=== PATIENT | female | born 1945 | race Caucasian/White ===

== ENCOUNTER → 2017-10-19 | Outpatient (CLI) | payer MEDICARE ==
--- NOTE | 2017-10-22 11:23 | MM ---
Reason for exam: screening (asymptomatic). Last mammogram was performed 2 years ago. History: Patient is postmenopausal. Family history of breast cancer in mother at age 60 and breast cancer in paternal cousin at age 50. Benign US biopsy breast VAD RT of the right breast, February 12, 2015. Benign right mammotome panel of the right breast, November 11, 2010. Benign left mammotome panel of the left breast, March 16, 2006. Took estrogen for 11 years beginning at age 50. Physical Findings: A clinical breast exam by your physician is recommended on an annual basis and results should be correlated with mammographic findings. MG Screening Mammo w CAD Bilateral CC and MLO view(s) were taken. Prior study comparison: October 15, 2015, right breast MG 3d diag mammo w/cad RT. February 12, 2015, right breast MG diagnostic mammo RT wo CAD. The breast tissue is heterogeneously dense. This may lower the sensitivity of mammography. There is a 4cm from nipple 6mm mass central upper right breast and a 8cm from nipple 4mm mass in the upper inner quadrant both associated with calcifications. There is a group of calcifications in the left lower inner quadrant 4cm from nipple with associated masses. Right biopsy marker noted. ASSESSMENT: Incomplete: need additional imaging evaluation, BI-RAD 0 RECOMMENDATION: Special view mammogram of both breasts. If lesion persists on supplemental views, image directed ultrasound is recommended. [facility] will attempt to contact patient to return for supplemental views and ultrasound if indicated.
== END | disposition home or self-care (01) ==
LOC: RADMAMWWP 15:22
PROVIDERS: ATTEND Internal Medicine
DX: Z12.31 Encounter for screening mammogram for malignant neoplasm of breast (principal)
CPT/HCPCS: 77067

== ENCOUNTER → 2017-10-31 | Outpatient (CLI) | payer MEDICARE ==
--- NOTE | 2017-10-31 11:43 | MM ---
Reason for exam: additional evaluation requested from abnormal screening. Last mammogram was performed less than 1 month ago. History: Patient is postmenopausal. Family history of breast cancer in mother at age 60 and breast cancer in paternal cousin at age 50. Benign US biopsy breast VAD RT of the right breast, February 12, 2015. Benign right mammotome panel of the right breast, November 11, 2010. Benign left mammotome panel of the left breast, March 16, 2006. Took estrogen for 11 years beginning at age 50. Physical Findings: Nurse did not find any significant physical abnormalities on exam. MG Work Up Mamm w CAD BILAT Bilateral spot compression CC, spot compression MLO, and LM view(s) were taken. Prior study comparison: October 19, 2017, bilateral MG screening mammo w CAD. October 15, 2015, right breast MG 3d diag mammo w/cad RT. There are scattered fibroglandular densities. Previous mammotome biopsy in the right breast x 2 and in the left breast x 1. 7mm circumscribed nodule 12 o'clock right breast becomes less defined as does the smaller medial nodule. Ultrasound recommended. Lower inner quadrant focal asymmetry left breast appears to have been present previously, 6 month follow up recommended. These results were verbally communicated with the patient and result sheet given to the patient on 10/31/17. ASSESSMENT: Incomplete: need additional imaging evaluation, BI-RAD 0 RECOMMENDATION: Ultrasound of the right breast. SAUMYAD
--- NOTE | 2017-10-31 11:45 | USB ---
Reason for exam: additional evaluation requested from abnormal screening. History: Patient is postmenopausal. Family history of breast cancer in mother at age 60 and breast cancer in paternal cousin at age 50. Benign US biopsy breast VAD RT of the right breast, February 12, 2015. Benign right mammotome panel of the right breast, November 11, 2010. Benign left mammotome panel of the left breast, March 16, 2006. Took estrogen for 11 years beginning at age 50. US Breast Workup Limited RT Right limited breast ultrasound including focal area of concern, retroareolar and axilla demonstrates a 4 x 3 x 4mm oval, cystic, benign lesion at 12 o'clock and a 5 x 4 x 6mm oval, cystic lesion at 12 o'clock likely corresponds to the mammographic finding. Scanned 12-4 o'clock. 6 month follow up mammogram recommended. These results were verbally communicated with the patient and result sheet given to the patient on 10/31/17. ASSESSMENT: Probably benign, BI-RAD 3 RECOMMENDATION: Follow-up diagnostic mammogram of both breasts in 6 months.
== END | disposition home or self-care (01) ==
LOC: RADMAMWWP 10:26
PROVIDERS: ATTEND Internal Medicine
DX: R92.8 Other abnormal and inconclusive findings on diagnostic imaging of breast (principal)
CPT/HCPCS: 77066

== ENCOUNTER → 2018-12-03 | Outpatient (CLI) | payer MEDICARE ==
--- NOTE | 2018-12-03 11:53 | MM ---
Reason for exam: screening (asymptomatic). Last mammogram was performed 1 year and 1 month ago. History: Patient is postmenopausal. Family history of breast cancer in mother at age 60 and breast cancer in paternal cousin at age 50. Benign US biopsy breast VAD RT of the right breast, February 12, 2015. Benign right mammotome panel of the right breast, November 11, 2010. Benign left mammotome panel of the left breast, March 16, 2006. Took estrogen for 11 years beginning at age 50. Physical Findings: A clinical breast exam by your physician is recommended on an annual basis and results should be correlated with mammographic findings. MG 3D Screening Mammo W/Cad Bilateral CC and MLO view(s) were taken. Prior study comparison: October 31, 2017, bilateral MG work up mamm w CAD BILAT. October 19, 2017, bilateral MG screening mammo w CAD. January 27, 2015, bilateral MG screening mammo w CAD. There are scattered fibroglandular densities. There are benign appearing diffuse, grouped and round calcifications bilaterally. Previous mammotome biopsy in the right breast x 3 and in the left breast. There is chronic nodularity bilaterally. There is no discrete abnormality. ASSESSMENT: Benign, BI-RAD 2 RECOMMENDATION: Routine screening mammogram of both breasts in 1 year.
== END | disposition home or self-care (01) ==
LOC: RADMAMWWP 09:19
PROVIDERS: ATTEND Internal Medicine
DX: Z12.31 Encounter for screening mammogram for malignant neoplasm of breast (principal)
CPT/HCPCS: 77063; 77067

== ENCOUNTER 2019-02-20 12:32 | Observation (INO) | payer MEDICARE ==
[2019-02-20] MEDS ORDERED: IPRATROPIUM-ALBUTEROL 3 ML NEB INHALATION STA (13:10)
[2019-02-20] MEDS ORDERED: MAGNESIUM SULFATE-D5W PMX 1 GM in DEXTROSE/WATER 1 100ML.BAG IVPB ONE (13:10)
[2019-02-20] MEDS ORDERED: methylPREDNISolone SOD SUCCI 125 MG/2 ML VIAL IV STA (13:10)
--- NOTE | 2019-02-20 13:49 | XR ---
EXAMINATION TYPE: XR chest 2V DATE OF EXAM: 02/20/2019 COMPARISON: NONE HISTORY: Difficulty breathing TECHNIQUE: Frontal and lateral views of the chest are obtained. FINDINGS: There is no focal air space opacity, pleural effusion, or pneumothorax seen. Minimal plat elike left basilar linear subsegmental atelectasis. The cardiac silhouette size is within normal limi ts. The osseous structures are intact. Mild multilevel degenerative changes of the spine. Cholecyst ectomy clips are seen. IMPRESSION: Minimal platelike left basilar subsegmental atelectasis.
--- NOTE | 2019-02-20 14:02 | ED ---
SOB HPI - General Chief Complaint: Shortness of Breath Stated Complaint: LISA, Abnormal EKG Time Seen by Provider: 02/20/19 12:40 Source: patient Mode of arrival: wheelchair Limitations: no limitations - History of Present Illness Initial Comments: The patient is a 73-year-old female who presents to the emergency Department with reported shortness of breath and weakness. She does have a history of COPD. States that over the past week her breathing has been worse than her baseline. She does not require oxygen at home. She does have a nebulizer and albuterol inhaler which she states she has been using as directed. It has not been helping her symptoms. She did see her primary care physician Dr. Dietrich today in office. She reported that she was having chest tightness. An EKG was performed which Dr. Dietrich said was concerning and was changed from her last EKG. Because of this he did recommend that she going to the emergency room. She was driven by her . She does arrive to being continues to report chest tightness which is common for her COPD. She denies a history of cardiac disease. States her last stress test was 5 years ago. She denies ripping or tearing sensation to her back. Denies cough, fevers or chills. Denies a history of DVT or PE. No lower extremity edema. No recent surgery or prolonged immobility. States that she usually comes to the hospital once per year for her breathing. There are no other alleviating, precipitating or modifying factors - Related Data Home Medications Medication Instructions Recorded Confirmed Albuterol Sulfate [Albuterol 1 - 2 puff INHALATION RT-Q4H PRN 02/20/19 02/20/19 Sulfate Hfa] Aspirin EC [Ecotrin Low Dose] 81 mg PO DAILY 02/20/19 02/20/19 Cholecalciferol [Vitamin D3 (25 4,000 unit PO DAILY 02/20/19 02/20/19 Mcg = 1000 Iu)] Esomeprazole Magnesium [NexIUM] 40 mg PO DAILY 02/20/19 02/20/19 Fluticasone/Salmeterol [Advair 1 puff INHALATION RT-BID 02/20/19 02/20/19 100-50 Diskus] Ipratropium-Albuterol Nebulize 3 ml INHALATION RT-Q4H PRN 02/20/19 02/20/19 [Duoneb 0.5 mg-3 mg/3 ml Soln] Levothyroxine Sodium [Synthroid] 112 mcg PO DAILY 02/20/19 02/20/19 Previous Rx's Medication Instructions Recorded Loratadine [Claritin] 10 mg PO DAILY tab 02/21/19 predniSONE 40 mg PO DAILY #8 tab 02/21/19 Allergies Allergy/AdvReac Type Severity Reaction Status Date / Time Sulfa (Sulfonamide Allergy Unknown Verified 02/20/19 14:07 Antibiotics) Review of Systems ROS Statement: Those systems with pertinent positive or pertinent negative responses have been documented in the HPI. ROS Other: All systems not noted in ROS Statement are negative. Past Medical History Past Medical History: COPD, Thyroid Disorder History of Any Multi-Drug Resistant Organisms: None Reported Past Surgical History: Bowel Resection, Cholecystectomy, Hysterectomy, Orthopedic Surgery, Tonsillectomy Additional Past Surgical History / Comment(s): cataract- retina detachment Past Psychological History: No Psychological Hx Reported Smoking Status: Never smoker Past Alcohol Use History: None Reported Past Drug Use History: None Reported - Past Family History Mother Family Medical History: Cancer Additional Family Medical History / Comment(s): breast cancer Father Family Medical History: CVA/TIA, Myocardial Infarction ([place]) Sister(s) Additional Family Medical History / Comment(s): Parkinson's Disease General Exam Limitations: no limitations General appearance: alert, in no apparent distress Head exam: Present: atraumatic, normocephalic, normal inspection Eye exam: Present: normal appearance, PERRL, EOMI. Absent: scleral icterus, conjunctival injection, periorbital swelling ENT exam: Present: normal exam, mucous membranes moist Neck exam: Present: normal inspection. Absent: tenderness, meningismus, lymphadenopathy Respiratory exam: Present: normal lung sounds bilaterally, wheezes, accessory muscle use, other (tachypnea). Absent: respiratory distress, rales, rhonchi, stridor Cardiovascular Exam: Present: regular rate, normal rhythm, normal heart sounds. Absent: systolic murmur, diastolic murmur, rubs, gallop, clicks GI/Abdominal exam: Present: soft, normal bowel sounds. Absent: distended, tenderness, guarding, rebound, rigid Extremities exam: Present: normal inspection, full ROM, normal capillary refill. Absent: tenderness, pedal edema, joint swelling, calf tenderness Back exam: Present: normal inspection Neurological exam: Present: alert, oriented X3, CN II-XII intact Psychiatric exam: Present: normal affect, normal mood Skin exam: Present: warm, dry, intact, normal color. Absent: rash Course Vital Signs 02/20/19 02/20/19 02/20/19 12:34 13:22 13:29 Temperature 98.2 F Pulse Rate 94 86 94 Respiratory 20 26 H Rate Blood Pressure 112/76 O2 Sat by Pulse 97 Oximetry 02/20/19 02/20/19 02/20/19 13:30 14:13 16:14 Temperature Pulse Rate 87 80 85 Respiratory 18 18 18 Rate Blood Pressure 131/78 121/90 145/68 O2 Sat by Pulse 98 99 99 Oximetry 02/20/19 02/20/19 18:19 19:48 Temperature Pulse Rate 92 85 Respiratory 18 18 Rate Blood Pressure 136/66 148/75 O2 Sat by Pulse 99 98 Oximetry Medical Decision Making - Medical Decision Making Upon arrival the patient is placed into room 4. She is hooked up to continuous pulse ox and cardiac monitoring. A 12-lead EKG is performed and compared to her one from her office visit. I do not see any concerning signs of acute ST segment elevation or depression. IV was established. Patient was given a gram of magnesium and 125 mg of solu-medrol. She was also provided with a DuoNeb breathing treatment. I did recommend laboratory studies. Upon review of the results the patient does have an elevated troponin 0.040. As the patient has no previous history of cardiac disease and is reporting a chest tightness I did recommend admitting the patient to the hospital in order to continue to trend her troponins. The patient did agree to this. I did call discuss case with Dr. Skinner who did accept admission for the patient. I did provide her with a aspirin. I will hold off on heparinizing the patient. The patient was transferred to the floor in stable condition - Lab Data Result diagrams: 02/20/19 12:55 02/20/19 12:55 Lab Results 02/20/19 02/20/19 02/20/19 Range/Units 12:55 12:55 12:55 WBC 7.5 (3.8-10.6) k/uL RBC 5.13 (3.80-5.40) m/uL Hgb 15.2 (11.4-16.0) gm/dL Hct 46.1 H (34.0-46.0) % MCV 89.9 (80.0-100.0) fL MCH 29.7 (25.0-35.0) pg MCHC 33.0 (31.0-37.0) g/dL RDW 14.6 (11.5-15.5) % Plt Count 237 (150-450) k/uL Neutrophils % 65 % Lymphocytes % 23 % Monocytes % 7 % Eosinophils % 3 % Basophils % 1 % Neutrophils # 4.9 (1.3-7.7) k/uL Lymphocytes # 1.7 (1.0-4.8) k/uL Monocytes # 0.5 (0-1.0) k/uL Eosinophils # 0.3 (0-0.7) k/uL Basophils # 0.1 (0-0.2) k/uL PT (9.0-12.0) sec INR (<1.2) APTT (22.0-30.0) sec Sodium 139 (137-145) mmol/L Potassium 4.1 (3.5-5.1) mmol/L Chloride 102 (98-107) mmol/L Carbon Dioxide 29 (22-30) mmol/L Anion Gap 8 mmol/L BUN 11 (7-17) mg/dL Creatinine 0.88 (0.52-1.04) mg/dL Est GFR (CKD-EPI)AfAm 76 (>60 ml/min/1.73 sqM) Est GFR (CKD-EPI)NonAf 66 (>60 ml/min/1.73 sqM) Glucose 86 (74-99) mg/dL Calcium 9.4 (8.4-10.2) mg/dL Magnesium 2.3 (1.6-2.3) mg/dL Total Bilirubin 0.5 (0.2-1.3) mg/dL AST 28 (14-36) U/L ALT 25 (9-52) U/L Alkaline Phosphatase 116 (38-126) U/L Troponin I (0.000-0.034) ng/mL NT-Pro-B Natriuret Pep 37 pg/mL Total Protein 6.9 (6.3-8.2) g/dL Albumin 4.1 (3.5-5.0) g/dL 02/20/19 02/20/19 Range/Units 12:55 12:55 WBC (3.8-10.6) k/uL RBC (3.80-5.40) m/uL Hgb (11.4-16.0) gm/dL Hct (34.0-46.0) % MCV (80.0-100.0) fL MCH (25.0-35.0) pg MCHC (31.0-37.0) g/dL RDW (11.5-15.5) % Plt Count (150-450) k/uL Neutrophils % % Lymphocytes % % Monocytes % % Eosinophils % % Basophils % % Neutrophils # (1.3-7.7) k/uL Lymphocytes # (1.0-4.8) k/uL Monocytes # (0-1.0) k/uL Eosinophils # (0-0.7) k/uL Basophils # (0-0.2) k/uL PT 9.8 (9.0-12.0) sec INR 0.9 (<1.2) APTT 23.8 (22.0-30.0) sec Sodium (137-145) mmol/L Potassium (3.5-5.1) mmol/L Chloride (98-107) mmol/L Carbon Dioxide (22-30) mmol/L Anion Gap mmol/L BUN (7-17) mg/dL Creatinine (0.52-1.04) mg/dL Est GFR (CKD-EPI)AfAm (>60 ml/min/1.73 sqM) Est GFR (CKD-EPI)NonAf (>60 ml/min/1.73 sqM) Glucose (74-99) mg/dL Calcium (8.4-10.2) mg/dL Magnesium (1.6-2.3) mg/dL Total Bilirubin (0.2-1.3) mg/dL AST (14-36) U/L ALT (9-52) U/L Alkaline Phosphatase (38-126) U/L Troponin I 0.040 H* (0.000-0.034) ng/mL NT-Pro-B Natriuret Pep pg/mL Total Protein (6.3-8.2) g/dL Albumin (3.5-5.0) g/dL - EKG Data EKG Comments: EKG demonstrates a normal sinus rhythm with a ventricular rate of 96. AR interval is 152. QRS 82. QTC 457. There is no acute ST segment elevations. No appreciable depressions. This is compared to patient's EKG from office which demonstrates sinus tachycardia. There was minimal ST depression in lead 2. No acute ST segment elevations from outside EKG Disposition Clinical Impression: Acute respiratory insufficiency, Elevated troponin, Acute exacerbation of chronic obstructive pulmonary disease Disposition: ADMITTED IP TO THIS HOSP Condition: Stable Is patient prescribed a controlled substance at d/c from ED?: No Decision to Admit Reason: Admit from EC Decision Date: 02/20/19 Decision Time: 15:59
[2019-02-20 14:14] LABS: Basophils # (A) 0.1 k/uL (0-0.2); Basophils % (A) 1 %; Eosinophils # (A) 0.3 k/uL (0-0.7); Eosinophils % (A) 3 %; HCT 46.1 % (34.0-46.0); HGB 15.2 gm/dL (11.4-16.0); Lymphocytes # (A) 1.7 k/uL (1.0-4.8); Lymphocytes % (A) 23 %; MCH 29.7 pg (25.0-35.0); MCV 89.9 fL (80.0-100.0); Mean Platelet Volume 7.5; Monocytes # (A) 0.5 k/uL (0-1.0); Monocytes % (A) 7 %; Neutrophils # (A) 4.9 k/uL (1.3-7.7); Neutrophils % (A) 65 %; Platelet Count 237 k/uL (150-450); RBC 5.13 m/uL (3.80-5.40); RDW 14.6 % (11.5-15.5); WBC 7.5 k/uL (3.8-10.6)
[2019-02-20 14:31] LABS: INR 0.9 (<1.2); Partial Thromboplastin Time 23.8 sec (22.0-30.0); Prothrombin Time 9.8 sec (9.0-12.0)
[2019-02-20 14:32] LABS: Albumin 4.1 g/dL (3.5-5.0); Calcium 9.4 mg/dL (8.4-10.2); Magnesium 2.3 mg/dL (1.6-2.3); Potassium 4.1 mmol/L (3.5-5.1); Total Bilirubin 0.5 mg/dL (0.2-1.3); Total Protein 6.9 g/dL (6.3-8.2)
[2019-02-20] MEDS ORDERED: ASPIRIN 81 MG PO STA (15:57)
[2019-02-20] MEDS ORDERED: NALOXONE 0.4 MG/ML 1 ML VIAL IV PRN (16:00)
[2019-02-20] MEDS ORDERED: LORATADINE-PSEUDOEPH 5-120 MG 1 EACH TAB.ER.12H PO PRN (16:08)
[2019-02-20] MEDS ORDERED: IPRATROPIUM-ALBUTEROL 3 ML NEB INHALATION PRN (19:34)
[2019-02-20] MEDS: IPRATROPIUM-ALBUTEROL 3 ML NEB INHALATION SCH ×2 (19:34→20:44)
[2019-02-20] MEDS: SYMBICORT 80-4.5 MCG INHALER INHALATION SCH (20:44)
[2019-02-20 21:16] VITALS: BMI 37.0
[2019-02-20] MEDS ORDERED: predniSONE 20 MG TAB PO SCH (23:45)
--- NOTE | 2019-02-20 23:55 | P.HPIM ---
History of Present Illness H&P Date: 02/20/19 Patient is a 73-year-old female with a PMH of COPD and hypothyroidism who presented to the ED with complaints of shortness of breath. Patient notes that over the past 3-4 days, she had gradually worsening shortness of breath, typical of her prior episodes of COPD, with a mild associated nonproductive cough. She also endorsed mild substernal pressure-like and sharp pain brought on predominantly by coughing, nonexertional, nonradiating, with no other alleviating or exacerbating features.. She denied nausea, vomiting, palpitations, diaphoresis, or dizziness. The patient states that she had co ntinued to use her nebulizer along with her rescue inhaler as prescribed with a number relief. She notes using her rescue inhaler up to 5 times daily over the past 3 days. The patient was seen at her PCPs office, Dr. Dietrich, earlier today, where she underwent an EKG which was concerning for some changes as per the patient, who was then advised to come to the ED. She notes no prior history of cardiac disease or history of blood clots. She denied any recent travel or leg pain. The patient underwent an extensive evaluation in the emergency room with chest x-ray showing left basilar atelectasis and EKG as reviewed by me showing a normal sinus rhythm at [address]/T-wave changes noted. Laboratory evaluation revealed a troponin level of 0.04, WBC count 7.5, hemoglobin 15.2, platelets 237, BUN 11, creatinine 0.8, and BNP 37. The patient was subsequently admitted to medicine service to rule out ACS. Review of Systems Pertinent positives and negatives as discussed in HPI, a complete review of systems was performed and all other systems are negative. Past Medical History Past Medical History: COPD, Thyroid Disorder History of Any Multi-Drug Resistant Organisms: None Reported Past Surgical History: Bowel Resection, Cholecystectomy, Hysterectomy, Orthopedic Surgery, Tonsillectomy Additional Past Surgical History / Comment(s): cataract- retina detachment Past Psychological History: No Psychological Hx Reported Smoking Status: Never smoker Past Alcohol Use History: None Reported Past Drug Use History: None Reported - Past Family History Mother Family Medical History: Cancer Additional Family Medical History / Comment(s): breast cancer Father Family Medical History: CVA/TIA, Myocardial Infarction ([place]) Sister(s) Additional Family Medical History / Comment(s): Parkinson's Disease Medications and Allergies Home Medications Medication Instructions Recorded Confirmed Type Albuterol Sulfate [Albuterol 1 - 2 puff INHALATION RT-Q4H PRN 02/20/19 02/20/19 History Sulfate Hfa] Aspirin EC [Ecotrin Low Dose] 81 mg PO DAILY 02/20/19 02/20/19 History Cholecalciferol [Vitamin D3 (25 4,000 unit PO DAILY 02/20/19 02/20/19 History Mcg = 1000 Iu)] Esomeprazole Magnesium [NexIUM] 40 mg PO DAILY 02/20/19 02/20/19 History Fluticasone/Salmeterol [Advair 1 puff INHALATION RT-BID 02/20/19 02/20/19 History 100-50 Diskus] Ipratropium-Albuterol Nebulize 3 ml INHALATION RT-Q4H PRN 02/20/19 02/20/19 History [Duoneb 0.5 mg-3 mg/3 ml Soln] Levothyroxine Sodium [Synthroid] 112 mcg PO DAILY 02/20/19 02/20/19 History Loratadine-Pseudoeph 10-240 mg 1 tab PO DAILY PRN 02/20/19 02/20/19 History [Claritin-D 24 Hr] Allergies Allergy/AdvReac Type Severity Reaction Status Date / Time Sulfa (Sulfonamide Allergy Unknown Verified 02/20/19 14:07 Antibiotics) Physical Exam Vitals: Vital Signs Temp Pulse Resp BP Pulse Ox 02/20/19 19:48 85 18 148/75 98 02/20/19 18:19 92 18 136/66 99 02/20/19 16:14 85 18 145/68 99 02/20/19 14:13 80 18 121/90 99 02/20/19 13:30 87 18 131/78 98 02/20/19 13:29 94 02/20/19 13:22 86 26 H 02/20/19 12:34 98.2 F 94 20 112/76 97 Intake and Output 02/20/19 02/20/19 02/20/19 06:59 14:59 22:59 Other: Weight 88.451 kg General: non toxic, no distress, appears at stated age, normal weight Derm: no unusual rashes/lesions no unusual ecchymoses, warm, dry Head: atraumatic, normocephalic, symmetric Eyes: EOMI, no lid lag, anicteric sclera, pupils equal round reactive to light ENT: Nose and ears atraumatic, no thrush, no pharyngeal erythema Neck: No thyromegaly, no cervical lymphadenopathy, trachea midline, supple Mouth: no lip lesion, mucus membranes moist Cardiovascular: S1S2 reg, no murmur, mild sternal chest wall tenderness, positive posterior tibial pulse bilateral, no edema, capillary refill less than 2 seconds Lungs: CTA bilateral, no rhonchi, no rales , no accessory muscle use Abdominal: soft, nontender to palpation, no guarding, no appreciable organomegaly, normal bowel sounds Ext: no gross muscle atrophy, muscle strength 5 out of 5 in all 4 extremities grossly, no contractures, Neuro: CN II-XI grossly intact, light touch intact all 4 extremities, finger to nose within normal limits, Psych: Alert, oriented, appropriate affect Results CBC & Chem 7: 02/20/19 12:55 02/20/19 12:55 Labs: Abnormal Lab Results - Last 24 Hours (Table) 02/20/19 02/20/19 Range/Units 12:55 12:55 Hct 46.1 H (34.0-46.0) % Troponin I 0.040 H* (0.000-0.034) ng/mL Assessment and Plan Plan: Chest discomfort, mild Troponin elevation, r/o ACS -Trend troponin -Cardiac monitoring -Cardiology consulted -Continue with aspirin -Supplemental oxygen Mild acute COPD exacerbation -Continue with DuoNeb's -Prednisone 40 mg twice a day -Continue with Symbicort Hypothyroidism -Continue with home meds DVT prophylaxis -Heparin The patient is admitted with an anticipated less than 2 midnight stay for evaluation of r/o ACS CODE STATUS: Full Code Discussed with: Patient Anticipated discharge date: 02/21/[address]: Home A total of 40 minutes was spent on the care of this complex patient more than 50% of the time was spent in counseling and care coordination.
[2019-02-21] MEDS: HEPARIN SODIUM,PORCINE 5,000 UNIT/ML 1 ML VIAL SQ SCH ×2 (00:30→08:31)
[2019-02-21] MEDS ORDERED: LEVOTHYROXINE 112 MCG TAB PO SCH (06:30)
[2019-02-21] MEDS: SYMBICORT 80-4.5 MCG INHALER INHALATION SCH (06:32)
[2019-02-21] MEDS: IPRATROPIUM-ALBUTEROL 3 ML NEB INHALATION SCH ×3 (06:33→15:24)
[2019-02-21] MEDS ORDERED: PANTOPRAZOLE 40 MG TABLET PO SCH (07:30)
[2019-02-21 08:39] VITALS: RESP 16; TEMP 98.5
[2019-02-21] MEDS ORDERED: predniSONE 20 MG TAB PO SCH (09:00)
[2019-02-21] MEDS ORDERED: ASPIRIN 81 MG PO SCH (09:00)
[2019-02-21] MEDS ORDERED: LORATADINE 10 MG TAB PO SCH (09:00)
--- NOTE | 2019-02-21 11:22 | P.CRDCN ---
History of Present Illness Consult date: 02/21/19 Requesting physician: Krys Linda Consult reason: shortness of breath Chief complaint: Shortness of breath History of present illness: This is a pleasant 73-year-old female with a past medical history significant for COPD and hypothyroidism who presents to the hospital with symptoms of shortness of breath. Patient states over the past 3-4 days her breathing has been consistently worsening. Patient does state that she intermittently gets a discomfort in her chest, but this is exacerbated and brought on primarily by coughing according to her. She denies any associated nausea vomiting palpitations dizziness or diaphoresis. Patient denies history of hypertension, no diabetes, no hyperlipidemia, she is a nonsmoker. Chest x- ray on presentation here shows left basilar subsegmental atelectasis. EKG shows a normal sinus rhythm with no acute changes. White blood cell count 7.5, hemoglobin 15.2, platelet count 237. Sodium 139, potassium 4.1, BUN 11 and creatinine 0.8. Troponins 0.04, 0.02, 0.02, 0.02. At the time of my examination this morning, she is currently receiving a breathing treatment, she does have significant wheezing scattered throughout. Denies any chest discomfort. Past Medical History Past Medical History: COPD, Thyroid Disorder Additional Past Medical History / Comment(s): hypothyroidism History of Any Multi-Drug Resistant Organisms: None Reported Past Surgical History: Bowel Resection, Cholecystectomy, Hysterectomy, Orthopedic Surgery, Tonsillectomy Additional Past Surgical History / Comment(s): cataract- retina detachment Past Anesthesia/Blood Transfusion Reactions: No Reported Reaction Past Psychological History: No Psychological Hx Reported Smoking Status: Never smoker Past Alcohol Use History: None Reported Past Drug Use History: None Reported - Past Family History Mother Family Medical History: Cancer Additional Family Medical History / Comment(s): breast cancer Father Family Medical History: CVA/TIA, Myocardial Infarction (ND) Sister(s) Additional Family Medical History / Comment(s): Parkinson's Disease Medications and Allergies Home Medications Medication Instructions Recorded Confirmed Type Albuterol Sulfate [Albuterol 1 - 2 puff INHALATION RT-Q4H PRN 02/20/19 02/20/19 History Sulfate Hfa] Aspirin EC [Ecotrin Low Dose] 81 mg PO DAILY 02/20/19 02/20/19 History Cholecalciferol [Vitamin D3 (25 4,000 unit PO DAILY 02/20/19 02/20/19 History Mcg = 1000 Iu)] Esomeprazole Magnesium [NexIUM] 40 mg PO DAILY 02/20/19 02/20/19 History Fluticasone/Salmeterol [Advair 1 puff INHALATION RT-BID 02/20/19 02/20/19 History 100-50 Diskus] Ipratropium-Albuterol Nebulize 3 ml INHALATION RT-Q4H PRN 02/20/19 02/20/19 History [Duoneb 0.5 mg-3 mg/3 ml Soln] Levothyroxine Sodium [Synthroid] 112 mcg PO DAILY 02/20/19 02/20/19 History Loratadine-Pseudoeph 10-240 mg 1 tab PO DAILY PRN 02/20/19 02/20/19 History [Claritin-D 24 Hr] Allergies Allergy/AdvReac Type Severity Reaction Status Date / Time Sulfa (Sulfonamide Allergy Unknown Verified 02/20/19 14:07 Antibiotics) Physical Exam Vitals: Vital Signs Temp Pulse Pulse Resp BP BP Pulse Ox 02/21/19 11:01 88 02/21/19 08:34 98.5 F 107 H 16 131/65 95 02/21/19 07:51 14 02/21/19 07:49 14 02/21/19 07:43 96.4 F L 86 14 129/60 96 02/21/19 06:47 88 02/21/19 06:33 92 02/20/19 20:58 92 02/20/19 20:45 88 02/20/19 19:48 85 18 148/75 98 02/20/19 18:19 92 18 136/66 99 02/20/19 16:14 85 18 145/68 99 02/20/19 14:13 80 18 121/90 99 02/20/19 13:30 87 18 131/78 98 02/20/19 13:29 94 02/20/19 13:22 86 26 H 02/20/19 12:34 98.2 F 94 20 112/76 97 Intake and Output 02/20/19 02/21/19 02/21/19 22:59 06:59 14:59 Intake Total 0 Balance 0 Intake: Oral 0 Other: # Voids 1 1 Weight 88.9 kg PHYSICAL EXAMINATION: GENERAL: 73-year-old female in no acute distress at the time of my examination HEENT: Head is atraumatic, normocephalic. Pupils equal, round. Sclera a nicteric. Conjunctiva are clear. Mucous membranes of the mouth are moist. Neck is supple. There is no elevated jugular venous pressure. No carotid bruit is heard. HEART EXAMINATION: Heart S1, S2 normal. No murmur or gallop heard. CHEST EXAMINATION:'s reveal decreased air exchange with scattered wheezing throughout ABDOMEN: Soft, nontender. Bowel sounds are heard. No organomegaly noted. EXTREMITIES: 2+ peripheral pulses with no evidence of peripheral edema and no calf tenderness noted. NEUROLOGIC patient is awake, alert and oriented 3 . . Results 02/20/19 12:55 02/20/19 12:55 Cardiac Enzymes 02/20/19 02/20/19 02/20/19 Range/Units 12:55 12:55 20:18 AST 28 (14-36) U/L Troponin I 0.040 H* 0.020 (0.000-0.034) ng/mL 02/21/19 02/21/19 Range/Units 01:01 05:51 AST (14-36) U/L Troponin I 0.021 0.022 (0.000-0.034) ng/mL Coagulation 02/20/19 Range/Units 12:55 PT 9.8 (9.0-12.0) sec APTT 23.8 (22.0-30.0) sec CBC 02/20/19 Range/Units 12:55 WBC 7.5 (3.8-10.6) k/uL RBC 5.13 (3.80-5.40) m/uL Hgb 15.2 (11.4-16.0) gm/dL Hct 46.1 H (34.0-46.0) % Plt Count 237 (150-450) k/uL Comprehensive Metabolic Panel 02/20/19 Range/Units 12:55 Sodium 139 (137-145) mmol/L Potassium 4.1 (3.5-5.1) mmol/L Chloride 102 (98-107) mmol/L Carbon Dioxide 29 (22-30) mmol/L BUN 11 (7-17) mg/dL Creatinine 0.88 (0.52-1.04) mg/dL Glucose 86 (74-99) mg/dL Calcium 9.4 (8.4-10.2) mg/dL AST 28 (14-36) U/L ALT 25 (9-52) U/L Alkaline Phosphatase 116 (38-126) U/L Total Protein 6.9 (6.3-8.2) g/dL Albumin 4.1 (3.5-5.0) g/dL Current Medications Generic Name Dose Route Start Last Admin Trade Name Freq PRN Reason Stop Dose Admin Albuterol/Ipratropium 3 ml 02/20/19 20:00 02/21/19 11:01 Duoneb 0.5 Mg-3 Mg/3 Ml Soln INHALATION 3 ml RT-QID GANESH Administration Albuterol/Ipratropium 3 ml 02/20/19 19:34 Duoneb 0.5 Mg-3 Mg/3 Ml Soln INHALATION RT-Q2H PRN Shortness Of Breath Or Wheezing Aspirin 81 mg 02/21/19 09:00 02/21/19 08:31 Aspirin PO 81 mg DAILY GANESH Administration Budesonide/Formoterol Fumarate 2 puff 02/20/19 20:00 02/21/19 06:32 Symbicort 80-4.5 Mcg Inhaler INHALATION 2 puff RT-BID GANESH Administration Heparin Sodium (Porcine) 5,000 unit 02/21/19 00:00 02/21/19 08:31 Heparin SQ 5,000 unit Q8HR GANESH Administration Levothyroxine Sodium 112 mcg 02/21/19 06:30 02/21/19 08:31 Synthroid PO 112 mcg DAILY@0630 GANESH Administration Loratadine 10 mg 02/21/19 09:00 02/21/19 08:31 Claritin PO 10 mg DAILY GANESH Administration Naloxone HCl 0.2 mg 02/20/19 16:00 Narcan IV Q2M PRN Opioid Reversal Pantoprazole Sodium 40 mg 02/21/19 07:30 02/21/19 08:31 Protonix PO 40 mg [id number] GANESH Administration Prednisone 40 mg 02/21/19 09:00 02/21/19 08:30 PO 40 mg DAILY GANESH Administration Intake and Output 02/20/19 02/21/19 02/21/19 22:59 06:59 14:59 Intake Total 0 Balance 0 Intake: Oral 0 Other: # Voids 1 1 Weight 88.9 kg 02/20/19 12:55 02/20/19 12:55 EKG Interpretations (text) EKG shows normal sinus rhythm with no acute changes. Assessment and Plan Plan: Assessment and plan #1 COPD exacerbation #2 atypical chest discomfort, EKG shows normal sinus rhythm with no acute changes. Troponins 0.04, 0.02, 02, 02 #3 cardiac risk factors negative for hypertension, no diabetes, no hyperlipidemia, patient is a nonsmoker. #4 hypothyroidism Plan We will obtain an echocardiogram with Doppler study. Once the patient's lung status improves, as an outpatient we recommended undergo stress testing. Further recommendations to follow. DNP note has been reviewed, I agree with a documented findings and plan of care. Patient was seen and examined.
[2019-02-21 11:48] VITALS: BP 124/74
[2019-02-21 15:36] VITALS: PULSE 93
--- NOTE | 2019-02-21 16:09 | P.DS ---
Providers Date of admission: 02/20/19 16:00 Expected date of discharge: 02/21/19 Attending physician: Krys Linda DO Consults: 02/20/19 16:00 Consult Physician Urgent Consulting Provider: [facility] Consult Reason/Comments: elevated trop Do you want consulting provider notified?: Yes [place] [facility] [place]: Discharge Diagnosis: Acute exacerbation of asthma Costochondritis secondary to acute exacerbation of asthma Mild troponin elevation likely secondary to work of breathing Hypothyroidism Hospital Course: Patient is a 73-year-old female past medical history of asthma/COPD and hypothyroidism who presented to the ER direction of her primary care phys nain due to abnormal EKG. She has been suffering for acute exacerbation of asthma for several days that was not getting better despite maximal doses of her nebulizer at home. She went to her PCPs office where he didn't EKG. He was concerned that this was changed slightly and therefore instructed her to the emergency department. In the ER she underwent an extensive evaluation. On arrival her vital signs were within normal limits. Laboratory analysis showed an elevated troponin 0.040. Chest x-ray showed minimal platelike atelectasis in the left base. She was describing some chest tightness. EKG showed normal sinus rhythm at a rate of 96, OH 152, QRS 82, and QTC 457. She received steroids, DuoNeb's, and aspirin in the ER. Her chest tightness resolved and her breathing improved significantly. She was admitted for further evaluation for chest pain. She is maintained on DuoNeb's and switch to oral prednisone. Her shortness of breath remained improved. She was seen by cardiology. Her next set of 3 troponins were negative. She underwent an echocardiogram which per verbal report showed normal ejection fraction as well as no wall motion abnormalities. She is determined stable for discharge home. Plan will be for outpatient stress test in the next 2-4 weeks once her acute exacerbation of asthma has improved. Patient seen and examined at bedside. No chest pain, shortness of breath, or nausea. Feeling well and wants to go home. Vital signs reviewed and stable. General: non toxic, no distress, appears at stated age Derm: warm, dry Head: atraumatic, normocephalic, symmetric Eyes: EOMI, no lid lag, anicteric sclera Mouth: no lip lesion, mucus membranes moist Cardiovascular: S1S2 reg, no murmur, positive posterior tibial pulse bilateral, Lungs: Decreased breath sounds bilateral, no rhonchi, no rales , no accessory muscle use Abdominal: soft, nontender to palpation, no guarding, no appreciable organomegaly Ext: no gross muscle atrophy, no edema, no contractures Neuro: CN II-XI grossly intact, no focal neuro deficits Psych: Alert, oriented, appropriate affect A total of 25 minutes of time were spent preparing this complex discharge summary . Patient Condition at Discharge: Stable Plan - Discharge Summary Discharge Rx Participant: No New Discharge Prescriptions: New Loratadine [Claritin] 10 mg PO DAILY tab predniSONE 40 mg PO DAILY #8 tab Continue Esomeprazole Magnesium [NexIUM] 40 mg PO DAILY Cholecalciferol [Vitamin D3 (25 Mcg = 1000 Iu)] 4,000 unit PO DAILY Levothyroxine Sodium [Synthroid] 112 mcg PO DAILY Ipratropium-Albuterol Nebulize [Duoneb 0.5 mg-3 mg/3 ml Soln] 3 ml INHALATION RT-Q4H PRN PRN Reason: Shortness Of Breath Aspirin EC [Ecotrin Low Dose] 81 mg PO DAILY Albuterol Sulfate [Albuterol Sulfate Hfa] 1 - 2 puff INHALATION RT-Q4H PRN PRN Reason: Shortness Of Breath Fluticasone/Salmeterol [Advair 100-50 Diskus] 1 puff INHALATION RT-BID Discontinued Loratadine-Pseudoeph 10-240 mg [Claritin-D 24 Hr] 1 tab PO DAILY PRN PRN Reason: Allergy Symptoms Discharge Medication List Albuterol Sulfate [Albuterol Sulfate Hfa] 1 - 2 puff INHALATION RT-Q4H PRN 02/20/19 [History] Aspirin EC [Ecotrin Low Dose] 81 mg PO DAILY 02/20/19 [History] Cholecalciferol [Vitamin D3 (25 Mcg = 1000 Iu)] 4,000 unit PO DAILY 02/20/19 [History] Esomeprazole Magnesium [NexIUM] 40 mg PO DAILY 02/20/19 [History] Fluticasone/Salmeterol [Advair 100-50 Diskus] 1 puff INHALATION RT-BID 02/20/19 [History] Ipratropium-Albuterol Nebulize [Duoneb 0.5 mg-3 mg/3 ml Soln] 3 ml INHALATION RT-Q4H PRN 02/20/19 [History] Levothyroxine Sodium [Synthroid] 112 mcg PO DAILY 02/20/19 [History] Loratadine [Claritin] 10 mg PO DAILY tab 02/21/19 [Rx] predniSONE 40 mg PO DAILY #8 tab 02/21/19 [Rx] Follow up Appointment(s)/Referral(s): Marky Dietrich MD [Primary Care Provider] - 1-2 days Alexander Delgado MD [STAFF PHYSICIAN] - 2 Weeks Activity/Diet/Wound Care/Special Instructions: Diet: Heart Healthy Activity: as tolerated Take your nebulizer 4 times daily and as needed for the next 3 days, then resume as needed treatments only.
--- NOTE | 2019-02-22 08:48 | ECHOF ---
Referral Reason:sob MEASUREMENTS -------- HEIGHT: 154.9 cm WEIGHT: 88.5 kg BP: 120/60 RVIDd: 2.6 cm (< 3.3) IVSd: 1.2 cm (0.6 - 1.1) LVIDd: 3.1 cm (3.9 - 5.3) LVPWd: 1.1 cm (0.6 - 1.1) IVSs: 1.7 cm LVIDs: 1.9 cm LVPWs: 1.5 cm LAESV Index (A-L): 17.55 ml/m Ao Diam: 2.6 cm (2.0 - 3.7) AV Cusp: 1.7 cm (1.5 - 2.6) LA Diam: 3.1 cm (2.7 - 3.8) MV E Munir: 0.65 m/s MV DecT: 144 ms MV A Munir: 1.04 m/s MV E/A Ratio: 0.62 RAP: 5.00 mmHg RVSP: 20.90 mmHg FINDINGS -------- Resting tachycardia (HR>100bpm). This was a technically adequate study. The left ventricular size is normal. There is mild concentric left ventricular hypertrophy. Overa ll left ventricular systolic function is normal with, an EF between 55 - 60 %. The diastolic fillin g pattern is normal for the age of the patient. The right ventricle is normal in size. Left atrium is normal size by volume. The right atrium was not well visualized. Interatrial and interventricular septum intact. The aortic valve is trileaflet and appears structurally normal. There is no evidence of aortic regu rgitation. There is no evidence of aortic stenosis. No mitral regurgitation. Mild tricuspid regurgitation present. There is no evidence of pulmonary hypertension. The right v entricular systolic pressure, as measured by Doppler, is 20.90mmHg. The pulmonic valve is normal. The aortic root size is normal. IVC not well visualized There is no pericardial effusion. CONCLUSIONS -------- 1. Resting tachycardia (HR>100bpm). 2. This was a technically adequate study. 3. The left ventricular size is normal. 4. There is mild concentric left ventricular hypertrophy. 5. Overall left ventricular systolic function is normal with, an EF between 55 - 60 %. 6. The diastolic filling pattern is normal for the age of the patient. 7. The right ventricle is normal in size. 8. Left atrium is normal size by volume. 9. The right atrium was not well visualized. 10. Interatrial and interventricular septum intact. 11. The aortic valve is trileaflet and appears structurally normal. 12. There is no evidence of aortic regurgitation. 13. There is no evidence of aortic stenosis. 14. No mitral regurgitation. 15. Mild tricuspid regurgitation present. 16. There is no evidence of pulmonary hypertension. 17. The right ventricular systolic pressure, as measured by Doppler, is 20.90mmHg. 18. The pulmonic valve is normal. 19. The aortic root size is normal. 20. IVC not well visualized 21. There is no pericardial effusion. [employer] SUPERVISOR: Lulu Mae RDCS
== END 2019-02-21 17:44 | disposition home or self-care (01) ==
LOC: EC 12:32 → 3SCARD 16:00
PROVIDERS: ADMIT Internal Medicine; ATTEND Internal Medicine
DX: J44.1 Chronic obstructive pulmonary disease with (acute) exacerbation (principal); R77.8 Other specified abnormalities of plasma proteins; E03.9 Hypothyroidism, unspecified; R94.31 Abnormal electrocardiogram [ECG] [EKG]; J98.11 Atelectasis; Z90.49 Acquired absence of other specified parts of digestive tract; Z79.82 Long term (current) use of aspirin; Z79.899 Other long term (current) drug therapy; Z79.890 Hormone replacement therapy; Z88.2 Allergy status to sulfonamides; Z80.3 Family history of malignant neoplasm of breast; Z82.49 Family history of ischemic heart disease and other diseases of the circulatory system; Z82.3 Family history of stroke; Z82.0 Family history of epilepsy and other diseases of the nervous system
CPT/HCPCS: 96372; 96365; 96375; 99285; 36415; 94640 ×4; 93005; 93306; 83880; 80053; 83735; 84484 ×2; 85025; 85610; 85730; 71046; G0378 ×2; J1644; J2930; J3475; J7512

== ENCOUNTER → 2020-12-09 | Outpatient (CLI) | payer MEDICARE ==
--- NOTE | 2020-12-13 08:43 | MM ---
Reason for exam: screening (asymptomatic). Last mammogram was performed 2 years ago. History: Patient is postmenopausal. Family history of breast cancer in mother at age 60 and breast cancer in paternal cousin at age 50. Benign US biopsy breast VAD RT of the right breast, February 12, 2015. Benign right mammotome panel of the right breast, November 11, 2010. Benign left mammotome panel of the left breast, March 16, 2006. Took estrogen for 11 years beginning at age 50. Physical Findings: A clinical breast exam by your physician is recommended on an annual basis and results should be correlated with mammographic findings. MG Screening Mammo w CAD Bilateral CC and MLO view(s) were taken. Prior study comparison: December 03, 2018, bilateral MG 3d screening mammo w/cad. October 31, 2017, bilateral MG work up mamm w CAD BILAT. October 15, 2015, right breast MG 3d diag mammo w/cad RT. There are scattered fibroglandular densities. Finding: There are stable, fine, grouped/clustered calcifications in the inner quadrant, anterior position of the left breast. There is a chronic nodularity in the right breast. No significant changes in finding since December 03, 2018, October 31, 2017, and October 15, 2015. ASSESSMENT: Benign, BI-RAD 2 RECOMMENDATION: Routine screening mammogram of both breasts in 1 year.
== END | disposition home or self-care (01) ==
LOC: RADMAMWWP 13:15
PROVIDERS: ATTEND Family Medicine
DX: Z12.31 Encounter for screening mammogram for malignant neoplasm of breast (principal); Z78.0 Asymptomatic menopausal state; Z80.3 Family history of malignant neoplasm of breast
CPT/HCPCS: 77067

== ENCOUNTER 2023-10-12 12:53 | Day surgery (SDC) | payer MEDICARE ==
[~2023-10-12 12:53] MED LIST: LIDOCAINE 1% (10MG/ML) FOR IV START INTRADERMA PRN
[2023-10-12] MEDS: LACTATED RINGERS 1,000 ML IV SCH (14:37)
[2023-10-12 14:58] VITALS: RESP 16; TEMP 97
[2023-10-12] MEDS ORDERED: PROPOFOL 10 MG/ML 20 ML VIAL IV ONE (15:20)
--- NOTE | 2023-10-12 15:36 | P.PCN ---
Date of Procedure: 10/12/23 Procedure(s) Performed: BRIEF HISTORY: Patient is a 77-year-old pleasant white female scheduled for an elective colonoscopy as a part of screening for colon cancer. Her last colonoscopy was 10 years ago. PROCEDURE PERFORMED: Colonoscopy. PREOPERATIVE DIAGNOSIS: Screening for colon cancer. IV sedation per Anesthesia. PROCEDURE: After informed consent was obtained, the patient, was brought into the endoscopy unit. IV sedation was administered by Anesthesia under continuous monitoring. Digital rectal examination was normal. Initially the Olympus CF-160 flexible video colonoscope was then inserted in the rectum, gradually advanced into the right colon and the ileocolic anastomosis was visualized and appeared normal. In the proximal transverse colon there was a 3 mm polyp that was removed by cold biopsy. Rest of the, transverse colon, descending colon, appeared normal. In the sigmoid colon at 40 cm from the anal verge there was a 1.5 cm broad-based polyp removed by snare polypectomy. Moderate sigmoid diverticulosis rest of the sigmoid colon, and rectum appeared normal. Retroflexion was performed in the rectum and no lesions were seen. The patient tolerated the procedure well. IMPRESSION: 3 mm proximal transverse colon polyp status post cold biopsy 1.5 cm proximal sigmoid colon polyp status post snare polypectomy Moderate sigmoid diverticulosis RECOMMENDATIONS: Findings of this examination were discussed with the patient as well as her family. She was advised to follow-up with the biopsy results. If the biopsy reveals adenoma she can have repeat colonoscopy in 3 years..
[2023-10-12 15:43] VITALS: BP 135/60
[2023-10-12 16:24] VITALS: PULSE 72
== END 2023-10-12 16:08 ==
LOC: ORWHC2ENDO 12:53
PROVIDERS: ATTEND Internal Medicine Gastroenterology
DX: Z12.11 Encounter for screening for malignant neoplasm of colon (principal); K63.5 Polyp of colon; K57.30 Diverticulosis of large intestine without perforation or abscess without bleeding; J44.9 Chronic obstructive pulmonary disease, unspecified; E03.9 Hypothyroidism, unspecified; Z88.2 Allergy status to sulfonamides; Z79.899 Other long term (current) drug therapy; Z79.890 Hormone replacement therapy; Z79.51 Long term (current) use of inhaled steroids; Z98.890 Other specified postprocedural states
CPT/HCPCS: 88305; 45380; 45385; J2704

== ENCOUNTER → 2024-10-21 | Outpatient (CLI) | payer MEDICARE ==
[2024-10-21 10:29] LABS: African American GFR (CKD) 66 (>60 ml/min/1.73 sqM); Blood Urea Nitrogen 13 mg/dL (7-17); Non-African American GFR(CKD) 57 (>60 ml/min/1.73 sqM)
--- NOTE | 2024-10-21 11:08 | CT ---
EXAMINATION TYPE: CT angio chest CT DLP: 437.40 mGycm, Automated exposure control for dose reduction was used. DATE OF EXAM: 10/21/2024 11:01 AM COMPARISON: . 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 MIP images are created and reviewed. FINDINGS: Pulmonary Artery: There is no evidence for a filling defect within the pulmonary vasculature to sugge st acute pulmonary embolism. The pulmonary artery is of normal size. Lungs/Pleura: No evidence of focal consolidation, pleural effusion or pneumothorax. Linear atelectasi s along the left major fissure. Additional regions within the right middle and lower lobes and along the right major fissure. No suspicious pulmonary nodule or mass. Airway: Large airways are patent. Heart: Size within normal limits.No pericardial effusion. No significant coronary artery calcificatio ns. Vasculature: No evidence of aortic aneurysm. Four-vessel aortic arch. Minimal atherosclerotic calcifi cation of the aorta and its branches. Mediastinum: No gross evidence of adenopathy. Musculoskeletal: No acute osseous abnormalities. Bilateral shoulder arthropathy. Degenerative disc di sease at L1-L2. Soft Tissues: Unremarkable. Lower neck: No significant findings. Upper Abdomen: Gallbladder is surgically absent. Possible hepatic steatosis. Postsurgical changes of the anterior abdominal wall in the epigastric region with mesh anchors identified. IMPRESSION: No evidence of pulmonary embolism or acute thoracic process. [facility], , 10/21/2024 11:06 AM
== END | disposition home or self-care (01) ==
LOC: RADCTMAIN 09:41
PROVIDERS: ATTEND Internal Medicine
DX: I26.99 Other pulmonary embolism without acute cor pulmonale (principal)
CPT/HCPCS: 82565; 84520; 71275; 36415; Q9967